=== PATIENT | female | born 1980 | race American Indian/Alaskan Native ===

== ENCOUNTER 2021-10-11 12:52 | Emergency (ER) | payer SELFPAY ==
[2021-10-11] MEDS ORDERED: HYDROmorphone 1 MG/1 ML INJ IV ONE (15:36)
[2021-10-11] MEDS ORDERED: SODIUM CHLORIDE 0.9% 1000 ML 1,000 ML IV ONE (15:36)
[2021-10-11] MEDS ORDERED: ONDANSETRON 4 MG/2 ML INJ IV ONE (15:36)
[2021-10-11] MEDS ORDERED: PANTOPRAZOLE 40 MG INJ IV ONE (15:39)
--- NOTE | 2021-10-11 15:39 | Emergency Department Report ---
ED General Adult HPI - General Chief complaint: Abdominal Pain Stated complaint: Abdominal pain PUI?: No Time Seen by Provider: 10/11/21 15:13 Source: patient, RN notes reviewed Mode of arrival: Ambulatory Limitations: No Limitations - History of Present Illness Initial comments: The patient was evaluated in the emergency department for symptoms described in the history of present illness. He/she was evaluated in the context of the global COVID-19 pandemic, which necessitated consideration that the patient might be at risk for infection with the virus that causes COVID-19. Institutional protocols and algorithms that pertain to the evaluation of patients at risk for COVID-19 are in a state of rapid change based on infor mation released by regulatory bodies including the CDC and federal and state organizations. These policies and algorithms were followed during the patient's care in the emergency department. Please note that these policies, procedures and recommendations changed on a rapid basis. The patient is a 41-year-old female with a history of gastric bypass in 2009. She reports that she was recently admitted to [facility], for "a bleeding ulcer", reports that she had an endoscopy performed, and was treated with antibiotics and Carafate. She was discharged approximately 1 week ago. She has completed her antibiotics and has remained compliant with her Carafate. She is also not COVID-19 vaccinated. She presents to the ER with a complaint of epigastric, left upper quadrant, left flank and left lower quadrant abdominal pain, cramping and constipation. She is not sure if she has had a fever, she endorses chills, no cough, no vomiting, positive nausea, positive constipation, no chest pain, no shortness of breath, and no diarrhea. -: Gradual, days(s) Location: abdomen Radiation: abdomen Severity scale (0 -10): 6 Quality: aching Consistency: constant Improves with: rest Worsens with: movement - Related Data Previous Rx's Medication Instructions Recorded Last Taken Type Acetaminophen [Non-Aspirin Extra 500 mg PO Q6HR PRN #30 tablet 10/11/21 Unknown Rx Strength] Metoclopramide [Reglan] 10 mg PO QID PRN #30 tablet 10/11/21 Unknown Rx Nitrofurantoin Wood/M-Cryst 100 mg PO Q12HR #14 capsule 10/11/21 Unknown Rx [Macrobid CAP] Pantoprazole [Protonix TAB] 20 mg PO QDAY #30 tablet. 10/11/21 Unknown Rx Allergies Allergy/AdvReac Type Severity Reaction Status Date / Time No Known Allergies Allergy Unverified 10/11/21 13:54 ED Review of Systems ROS: Stated complaint: ULCER/CHEST PAIN Other details as noted in HPI Constitutional: chills, malaise, weakness Eyes: denies: eye discharge ENT: denies: epistaxis Respiratory: denies: cough Cardiovascular: denies: chest pain Gastrointestinal: abdominal pain, nausea, constipation. denies: vomiting, diarrhea, hematemesis, melena, hematochezia Genitourinary: denies: dysuria Neurological: weakness Psychiatric: anxiety ED Past Medical Hx - Past Medical History Previous Medical History?: Yes Additional medical history: Gastric ulcers - Surgical History Past Surgical History?: Yes Additional Surgical History: Gastric bypass in 2009, skin graft in 1997 - Medications Home Medications: Home Medications Medication Instructions Recorded Confirmed Last Taken Type Acetaminophen [Non-Aspirin Extra 500 mg PO Q6HR PRN #30 tablet 10/11/21 Unknown Rx Strength] Metoclopramide [Reglan] 10 mg PO QID PRN #30 tablet 10/11/21 Unknown Rx Nitrofurantoin Wood/M-Cryst 100 mg PO Q12HR #14 capsule 10/11/21 Unknown Rx [Macrobid CAP] Pantoprazole [Protonix TAB] 20 mg PO QDAY #30 tablet. 10/11/21 Unknown Rx ED Physical Exam - General Limitations: No Limitations General appearance: alert, anxious, in distress - Head Head exam: Present: atraumatic, normocephalic - Eye Eye exam: Present: normal appearance, EOMI. Absent: nystagmus - ENT ENT exam: Present: normal exam, normal orophraynx, mucous membranes moist, normal external ear exam - Neck Neck exam: Present: normal inspection, full ROM. Absent: tenderness, meningismus - Respiratory Respiratory exam: Present: normal lung sounds bilaterally. Absent: respiratory distress, wheezes, rales, rhonchi, stridor, decreased breath sounds - Cardiovascular Cardiovascular Exam: Present: regular rate, normal rhythm, normal heart sounds. Absent: bradycardia, tachycardia, irregular rhythm, systolic murmur, diastolic murmur, rubs, gallop - GI/Abdominal GI/Abdominal exam: Present: soft, tenderness, guarding, other (Epigastric, left upper quadrant, and left flank abdominal pain/tenderness). Absent: distended, rebound, rigid, pulsatile mass - Extremities Exam Extremities exam: Present: normal inspection, full ROM, other (2+ pulses noted in the bilateral upper and lower extremities. There is no palpable cord. negative Homans sign. Muscular compartments are soft. The pelvis is stable.). Absent: pedal edema, calf tenderness - Back Exam Back exam: Present: normal inspection, full ROM. Absent: tenderness, CVA tenderness (R), CVA tenderness (L), paraspinal tenderness, vertebral tenderness - Neurological Exam Neurological exam: Present: alert, oriented X3, normal gait, other (No facial droop. Tongue midline. Extraocular movements intact bilaterally. Facial sensation intact to light touch in V1, V2, V3 distribution bilaterally. 5 and a 5 strength in 4 extremities. Sensation intact to light touch in 4 extremities.). Absent: motor sensory deficit - Psychiatric Psychiatric exam: Present: normal affect, normal mood - Skin Skin exam: Present: warm, dry, intact, normal color. Absent: rash ED Course Vital Signs 10/11/21 13:59 Temperature 98.6 F Pulse Rate 78 Respiratory 20 Rate Blood Pressure 113/71 [Right] O2 Sat by Pulse 99 Oximetry - Reevaluation(s) Reevaluation #1: 10/11/21 15:51 Differential diagnosis, including but not limited to: Perforation, obstruction, internal hernia/Petersons hernia, colitis, diverticulitis, IBS, urinary tract infection, pneumonia, GERD, gastritis Assessment and plan: 41-year-old female status post endoscopic evaluation a few weeks ago [place], distant history of gastric bypass, resenting with abdominal pain, nausea, constipation and bloating. She appears uncomfortable and is fairly tender. We will attempt to obtain medical records, but it is a weekend, so uncertain as to whether or not medical records will be received in a timely fashion. However, we will obtain appropriate laboratory studies, EKG, CT scan of the abdomen pelvis with intravenous and oral contrast, and treat the patient's symptoms aggressively. We will reassess after completion of the aforementioned data points have resulted. I discussed this plan of care with the patient. She is agreeable. 10/11/21 20:46 The patient is reassessed. She is not having pain at this time. No active nausea or vomiting. She is currently on her cellular phone. She feels improved. Lactic acid unremarkable. Laboratory studies unremarkable. CT scan abdomen pelvis shows no acute or emergent findings. LFTs unremarkable. Nonspecific biliary abnormalities likely physiologic. Patient is observed in this department for hours without clinical decompensation. She is suitable to take [id number] pain medication, and follow-up with an outpatient primary care doctor, general surgeon and/or GI physician. At this point in time, given improvement in exam, current presentation, laboratory studies, CT scan findings, I think internal hernia is very unlikely at this time 10/11/21 21:57 Final reevaluation. Urinalysis suggest bacteriuria with pyuria. Patient r eports readiness for discharge. No abdominal tenderness, rebound or guarding at this time. Trial of oral antibiotics. Patient endorses readiness for discharge. Please note that this patient had a very prolonged stay here in the emergency room because it took a very long time for her CAT scan to be obtained, and also a long time for the patient to produce a urine sample. ED Medical Decision Making - Lab Data Result diagrams: 10/11/21 16:04 10/11/21 16:30 Vital Signs 10/11/21 13:59 Temperature 98.6 F Pulse Rate 78 Respiratory 20 Rate Blood Pressure 113/71 [Right] O2 Sat by Pulse 99 Oximetry Lab Results 10/11/21 10/11/21 10/11/21 Range/Units 16:04 16:04 16:04 WBC 10.5 (4.5-11.0) K/mm3 RBC 4.50 (3.65-5.03) M/mm3 Hgb 12.5 (10.1-14.3) gm/dl Hct 39.9 (30.3-42.9) % MCV 89 (79-97) fl MCH 28 (28-32) pg MCHC 31 (30-34) % RDW 26.8 H (13.2-15.2) % Plt Count 415 (140-440) K/mm3 Add Manual Diff Complete Total Counted 100 Seg Neuts % (Manual) 72.0 H (40.0-70.0) % Band Neutrophils % 0 % Lymphocytes % (Manual) 19.0 (13.4-35.0) % Reactive Lymphs % (Man) 0 % Monocytes % (Manual) 8.0 H (0.0-7.3) % Eosinophils % (Manual) 1.0 (0.0-4.3) % Basophils % (Manual) 0 (0.0-1.8) % Metamyelocytes % 0 % Myelocytes % 0 % Promyelocytes % 0 % Blast Cells % 0 % Nucleated RBC % Not Reportable Seg Neutrophils # Man 7.6 (1.8-7.7) K/mm3 Band Neutrophils # 0.0 K/mm3 Lymphocytes # (Manual) 2.0 (1.2-5.4) K/mm3 Abs React Lymphs (Man) 0.0 K/mm3 Monocytes # (Manual) 0.8 (0.0-0.8) K/mm3 Eosinophils # (Manual) 0.1 (0.0-0.4) K/mm3 Basophils # (Manual) 0.0 (0.0-0.1) K/mm3 Metamyelocytes # 0.0 K/mm3 Myelocytes # 0.0 K/mm3 Promyelocytes # 0.0 K/mm3 Blast Cells # 0.0 K/mm3 WBC Morphology Not Reportable Hypersegmented Neuts Not Reportable Hyposegmented Neuts Not Reportable Hypogranular Neuts Not Reportable Smudge Cells Not Reportable Toxic Granulation Not Reportable Toxic Vacuolation Not Reportable Dohle Bodies Not Reportable Pelger-Huet Anomaly Not Reportable Kayleigh Rods Not Reportable Platelet Estimate Consistent w auto Clumped Platelets Not Reportable Plt Clumps, EDTA Not Reportable Large Platelets Not Reportable Giant Platelets Not Reportable Platelet Satelliting Not Reportable Plt Morphology Comment Not Reportable RBC Morphology Not Reportable Dimorphic RBCs Not Reportable Polychromasia Not Reportable Hypochromasia Not Reportable Poikilocytosis Not Reportable Anisocytosis 2+ Microcytosis Not Reportable Macrocytosis Not Reportable Spherocytes Not Reportable Pappenheimer Bodies Not Reportable Sickle Cells Not Reportable Target Cells Not Reportable Tear Drop Cells Not Reportable Ovalocytes Not Reportable Helmet Cells Not Reportable [place] Bodies Not Reportable [place] Rings Not Reportable Singh Cells Not Reportable Bite Cells Not Reportable Crenated Cell Not Reportable Elliptocytes Not Reportable Acanthocytes (Spur) Not Reportable Rouleaux Not Reportable Hemoglobin C Crystals Not Reportable Schistocytes Not Reportable Malaria parasites Not Reportable Jeff Bodies Not Reportable Hem Pathologist Commnt No PT 13.2 (12.2-14.9) Sec. INR 0.90 (0.87-1.13) Sodium 137 (137-145) mmol/L Potassium 4.1 (3.6-5.0) mmol/L Chloride 98.9 (98-107) mmol/L Carbon Dioxide 25 (22-30) mmol/L Anion Gap 17 mmol/L BUN 8 (7-17) mg/dL Creatinine 0.7 (0.6-1.2) mg/dL Estimated GFR > 60 ml/min BUN/Creatinine Ratio 11 % Glucose 83 (65-100) mg/dL Lactic Acid (0.7-2.0) mmol/L Calcium 9.4 (8.4-10.2) mg/dL Magnesium (1.7-2.3) mg/dL Total Bilirubin 0.40 (0.1-1.2) mg/dL Direct Bilirubin < 0.2 (0-0.2) mg/dL Indirect Bilirubin 0.2 mg/dL AST 13 (5-40) units/L ALT 8 (7-56) units/L Alkaline Phosphatase 80 (35-129) units/L Total Creatine Kinase (30-135) units/L Total Protein 8.6 H (6.3-8.2) g/dL Albumin 4.7 (3.9-5) g/dL Albumin/Globulin Ratio 1.2 % Lipase (13-60) units/L HCG, Quant (0-4) mIU/mL 10/11/21 10/11/21 10/11/21 Range/Units 16:04 16:04 16:04 WBC (4.5-11.0) K/mm3 RBC (3.65-5.03) M/mm3 Hgb (10.1-14.3) gm/dl Hct (30.3-42.9) % MCV (79-97) fl MCH (28-32) pg MCHC (30-34) % RDW (13.2-15.2) % Plt Count (140-440) K/mm3 Add Manual Diff Total Counted Seg Neuts % (Manual) (40.0-70.0) % Band Neutrophils % % Lymphocytes % (Manual) (13.4-35.0) % Reactive Lymphs % (Man) % Monocytes % (Manual) (0.0-7.3) % Eosinophils % (Manual) (0.0-4.3) % Basophils % (Manual) (0.0-1.8) % Metamyelocytes % % Myelocytes % % Promyelocytes % % Blast Cells % % Nucleated RBC % Seg Neutrophils # Man (1.8-7.7) K/mm3 Band Neutrophils # K/mm3 Lymphocytes # (Manual) (1.2-5.4) K/mm3 Abs React Lymphs (Man) K/mm3 Monocytes # (Manual) (0.0-0.8) K/mm3 Eosinophils # (Manual) (0.0-0.4) K/mm3 Basophils # (Manual) (0.0-0.1) K/mm3 Metamyelocytes # K/mm3 Myelocytes # K/mm3 Promyelocytes # K/mm3 Blast Cells # K/mm3 WBC Morphology Hypersegmented Neuts Hyposegmented Neuts Hypogranular Neuts Smudge Cells Toxic Granulation Toxic Vacuolation Dohle Bodies Pelger-Huet Anomaly Kayleigh Rods Platelet Estimate Clumped Platelets Plt Clumps, EDTA Large Platelets Giant Platelets Platelet Satelliting Plt Morphology Comment RBC Morphology Dimorphic RBCs Polychromasia Hypochromasia Poikilocytosis Anisocytosis Microcytosis Macrocytosis Spherocytes Pappenheimer Bodies Sickle Cells Target Cells Tear Drop Cells Ovalocytes Helmet Cells [place] Bodies [place] Rings [place] Cells Bite Cells Crenated Cell Elliptocytes Acanthocytes (Spur) Rouleaux Hemoglobin C Crystals Schistocytes Malaria parasites Jeff Bodies Hem Pathologist Commnt PT (12.2-14.9) Sec. INR (0.87-1.13) Sodium (137-145) mmol/L Potassium (3.6-5.0) mmol/L Chloride (98-107) mmol/L Carbon Dioxide (22-30) mmol/L Anion Gap mmol/L BUN (7-17) mg/dL Creatinine (0.6-1.2) mg/dL Estimated GFR ml/min BUN/Creatinine Ratio % Glucose (65-100) mg/dL Lactic Acid 0.80 (0.7-2.0) mmol/L Calcium (8.4-10.2) mg/dL Magnesium (1.7-2.3) mg/dL Total Bilirubin (0.1-1.2) mg/dL Direct Bilirubin (0-0.2) mg/dL Indirect Bilirubin mg/dL AST (5-40) units/L ALT (7-56) units/L Alkaline Phosphatase (35-129) units/L Total Creatine Kinase (30-135) units/L Total Protein (6.3-8.2) g/dL Albumin (3.9-5) g/dL Albumin/Globulin Ratio % Lipase 44 (13-60) units/L HCG, Quant < 2 (0-4) mIU/mL 10/11/21 10/11/21 Range/Units 16:04 16:30 WBC (4.5-11.0) K/mm3 RBC (3.65-5.03) M/mm3 Hgb (10.1-14.3) gm/dl Hct (30.3-42.9) % MCV (79-97) fl MCH (28-32) pg MCHC (30-34) % RDW (13.2-15.2) % Plt Count (140-440) K/mm3 Add Manual Diff Total Counted Seg Neuts % (Manual) (40.0-70.0) % Band Neutrophils % % Lymphocytes % (Manual) (13.4-35.0) % Reactive Lymphs % (Man) % Monocytes % (Manual) (0.0-7.3) % Eosinophils % (Manual) (0.0-4.3) % Basophils % (Manual) (0.0-1.8) % Metamyelocytes % % Myelocytes % % Promyelocytes % % Blast Cells % % Nucleated RBC % Seg Neutrophils # Man (1.8-7.7) K/mm3 Band Neutrophils # K/mm3 Lymphocytes # (Manual) (1.2-5.4) K/mm3 Abs React Lymphs (Man) K/mm3 Monocytes # (Manual) (0.0-0.8) K/mm3 Eosinophils # (Manual) (0.0-0.4) K/mm3 Basophils # (Manual) (0.0-0.1) K/mm3 Metamyelocytes # K/mm3 Myelocytes # K/mm3 Promyelocytes # K/mm3 Blast Cells # K/mm3 WBC Morphology Hypersegmented Neuts Hyposegmented Neuts Hypogranular Neuts Smudge Cells Toxic Granulation Toxic Vacuolation Dohle Bodies Pelger-Huet Anomaly Kayleigh Rods Platelet Estimate Clumped Platelets Plt Clumps, EDTA Large Platelets Giant Platelets Platelet Satelliting Plt Morphology Comment RBC Morphology Dimorphic RBCs Polychromasia Hypochromasia Poikilocytosis Anisocytosis Microcytosis Macrocytosis Spherocytes Pappenheimer Bodies Sickle Cells Target Cells Tear Drop Cells Ovalocytes Helmet Cells [place] Bodies [place] Rings Singh Cells Bite Cells Crenated Cell Elliptocytes Acanthocytes (Spur) Rouleaux Hemoglobin C Crystals Schistocytes Malaria parasites Jeff Bodies Hem Pathologist Commnt PT (12.2-14.9) Sec. INR (0.87-1.13) Sodium 135 L (137-145) mmol/L Potassium 4.1 (3.6-5.0) mmol/L Chloride 97.6 L (98-107) mmol/L Carbon Dioxide 25 (22-30) mmol/L Anion Gap 17 mmol/L BUN 8 (7-17) mg/dL Creatinine 0.8 (0.6-1.2) mg/dL Estimated GFR > 60 ml/min BUN/Creatinine Ratio 10 % Glucose 81 (65-100) mg/dL Lactic Acid (0.7-2.0) mmol/L Calcium 9.4 (8.4-10.2) mg/dL Magnesium 1.80 (1.7-2.3) mg/dL Total Bilirubin 0.30 (0.1-1.2) mg/dL Direct Bilirubin (0-0.2) mg/dL Indirect Bilirubin mg/dL AST 13 (5-40) units/L ALT 8 (7-56) units/L Alkaline Phosphatase 80 (35-129) units/L Total Creatine Kinase 63 (30-135) units/L Total Protein 8.3 H (6.3-8.2) g/dL Albumin 4.8 (3.9-5) g/dL Albumin/Globulin Ratio 1.4 % Lipase (13-60) units/L HCG, Quant (0-4) mIU/mL - EKG Data -: EKG Interpreted by Hi EKG shows normal: sinus rhythm Rate: normal - EKG Data 10/11/21 15:58 The EKG is interpreted at 15: 51 Sinus rhythm, rate 60 bpm. Left axis deviation, left anterior fascicular block, high left ventricular voltage, intervals within normal limits, minimal motion artifact. Abnormal EKG. Not a STEMI - Radiology Data Radiology results: report reviewed, image reviewed CT ABDOMEN AND PELVIS WITH CONTRAST INDICATION / CLINICAL INFORMATION: acute abd pain, iv and oral. TECHNIQUE: Axial CT images were obtained through the abdomen and pelvis after 100 cc Omnipaque [address] scans at this location are performed using CT dose reduction for ALARA by means of automated exposure control. Oral contrast administered as well. COMPARISON: None available. FINDINGS: LOWER CHEST: No significant abnormality. LIVER: No significant abnormality. GALLBLADDER: No significant abnormality. BILE DUCTS: Very mild intrahepatic and extra hepatic ductal dilation is likely physiologic. PANCREAS: No significant abnormality. SPLEEN: No significant abnormality. ADRENALS: No significant abnormality. RIGHT KIDNEY / URETER: No significant abnormality. LEFT KIDNEY / URETER: No significant abnormality. STOMACH / SMALL BOWEL: Prior gastric bypass changes. Small bowel is nondilated. COLON: No significant abnormality. APPENDIX: No significant abnormality. PERITONEUM: No free fluid. No free air. No fluid collection. LYMPH NODES: No significant adenopathy. AORTA / ARTERIES: No significant abnormality. IVC / VEINS: No significant abnormality. URINARY BLADDER: No significant abnormality. REPRODUCTIVE ORGANS: 3.3 cm right adnexal cyst is likely physiologic. ADDITIONAL FINDINGS: None. SKELETAL SYSTEM: No significant abnormality. IMPRESSION: 1. Very mild intrahepatic and extrahepatic which may be physiologic. No obstructing stone or mass identified. Recommend clinical correlation with LFTs. Otherwise, there is no acute abnormality. 2. Postsurgical changes from gastric bypass without acute evidence of obstruction. Signer Name: Jan Hahn MD Signed: 10/11/2021 7:20 PM Workstation Name: [id number] Critical care attestation.: If time is entered above; I have spent that time in minutes in the direct care of this critically ill patient, excluding procedure time. ED Disposition Clinical Impression: Acute abdominal pain, History of gastric bypass, Bacteriuria with pyuria Disposition: 01 HOME / SELF CARE / HOMELESS Is pt being admited?: No Does the pt Need Aspirin: No Condition: Good Instructions: Abdominal Pain, Adult, Abdominal Pain (ED) Additional Instructions: Do not take Motrin, ibuprofen, Naprosyn, Aleve, heavy or spicy foods. Do not take metformin medication for the next 2 days, if patient takes this medication. Patient may take the prescribed pain medications as needed and directed. Follow-up with an outpatient primary care doctor, local company truck driver, or bariatric surgeon within the next 5 to 7 days for repeat checkup and evaluation. Please have your outpatient physician contact medical records department to obtain copies of laboratory studies and imaging studies to follow-up on nonemergent incidental abnormal findings. Please return to the emergency room right away with new pain, worsened pain, migration of pain, projectile vomiting, change in mental status, confusion, inability tolerate liquid feeds, new, worsened or different symptoms not present on the initial emergency room evaluation Dr. Brennan is a local primary care doctor. Dr. Rudolph is a local bariatric surgeon. [facility] is a local GI practice. Prescriptions: Acetaminophen [Non-Aspirin Extra Strength] 500 mg PO Q6HR PRN #30 tablet PRN Reason: Pain , Severe (7-10) Metoclopramide [Reglan] 10 mg PO QID PRN #30 tablet PRN Reason: Nausea Referrals: ROGERIO BRENNAN MD [Staff Physician] - 3-5 Days CINDY RUDOLPH MD [Staff Physician] - 3-5 Days [facility] [Provider Group] - 3-5 Days
[2021-10-11 16:37] LABS: Hematocrit 39.9 % (30.3-42.9); Hemoglobin 12.5 gm/dl (10.1-14.3); Mean Corpuscular HGB Conc 31 % (30-34); Mean Corpuscular Volume 89 fl (79-97); Platelet Count 415 K/mm3 (140-440)
[2021-10-11 16:42] LABS: Red Cell Distribution Width 26.8 % (13.2-15.2)
[2021-10-11 17:00] LABS: INR 0.9 (0.87-1.13)
[2021-10-11 17:01] LABS: Alanine Aminotransferase 8 units/L (7-56); Albumin 4.7 g/dL (3.9-5); Blood Urea Nitrogen 8 mg/dL (7-17); Calcium 9.4 mg/dL (8.4-10.2); Hemolysis Index 4
[2021-10-11 17:09] LABS: Alanine Aminotransferase 8 units/L (7-56); Albumin 4.8 g/dL (3.9-5); BUN/Creatinine Ratio 10; Blood Urea Nitrogen 8 mg/dL (7-17); Calcium 9.4 mg/dL (8.4-10.2); Hemolysis Index 7
[2021-10-11 17:24] LABS: BUN/Creatinine Ratio 11; Bilirubin,Direct < 0.2 mg/dL (0-0.2)
[2021-10-11 17:31] LABS: Anisocytosis 2+; Basophils % (Manual) 0 % (0.0-1.8); Platelet Estimate Consistent w Auto; Total Cells Counted 100
--- NOTE | 2021-10-11 20:25 | Cat Scan Report ---
CT ABDOMEN AND PELVIS WITH CONTRAST INDICATION / CLINICAL INFORMATION: acute abd pain, iv and oral. TECHNIQUE: Axial CT images were obtained through the abdomen and pelvis after 100 cc Omnipaque [address] scans at this location are performed using CT dose reduction for ALARA by means of automated exposure control. Oral contrast administered as well. COMPARISON: None available. FINDINGS: LOWER CHEST: No significant abnormality. LIVER: No significant abnormality. GALLBLADDER: No significant abnormality. BILE DUCTS: Very mild intrahepatic and extra hepatic ductal dilation is likely physiologic. PANCREAS: No significant abnormality. SPLEEN: No significant abnormality. ADRENALS: No significant abnormality. RIGHT KIDNEY / URETER: No significant abnormality. LEFT KIDNEY / URETER: No significant abnormality. STOMACH / SMALL BOWEL: Prior gastric bypass changes. Small bowel is nondilated. COLON: No significant abnormality. APPENDIX: No significant abnormality. PERITONEUM: No free fluid. No free air. No fluid collection. LYMPH NODES: No significant adenopathy. AORTA / ARTERIES: No significant abnormality. IVC / VEINS: No significant abnormality. URINARY BLADDER: No significant abnormality. REPRODUCTIVE ORGANS: 3.3 cm right adnexal cyst is likely physiologic. ADDITIONAL FINDINGS: None. SKELETAL SYSTEM: No significant abnormality. IMPRESSION: 1. Very mild intrahepatic and extrahepatic which may be physiologic. No obstructing stone or mass nicole ntified. Recommend clinical correlation with LFTs. Otherwise, there is no acute abnormality. 2. Postsurgical changes from gastric bypass without acute evidence of obstruction. Signer Name: Jan Hahn MD Signed: 10/11/2021 8:20 PM Workstation Name: [id number]
[2021-10-11 21:27] LABS: Bacteria,Urine 1+ /HPF (Negative); Bilirubin,Urine NEG (Negative); Blood,Urine NEG (Negative); Color,Urine Colorless (Yellow); Protein,Urine <15 mg/dL mg/dL (Negative); Urobilinogen,Urine < 2.0 mg/dL (<2.0)
[2021-10-11 22:17] VITALS: BP 123/71
--- NOTE | 2021-10-12 10:04 | Electrocardiograph Report ---
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
== END 2021-10-11 22:16 | disposition home or self-care (01) ==
LOC: ED 12:52
DX: R10.13 Epigastric pain (principal); R10.12 Left upper quadrant pain; R82.81 Pyuria; R82.71 Bacteriuria; Z98.890 Other specified postprocedural states; Z79.899 Other long term (current) drug therapy
CPT/HCPCS: 36415; 74177; 80048; 80053; 80076; 81001; 82140; 82550; 83690; 83735; 84484; 84702; 85007; 85025; 85610; 87086; 93005; 93010; 96361; 96374; 96375; 99284; C9113; J1170; J2405; J7030; Q9967; Q0162